=== PATIENT | male | born 1995 | race Caucasian/White ===

== ENCOUNTER 2020-06-09 17:56 | Emergency (ER) | payer MEDICAID, SELFPAY ==
--- NOTE | 2020-06-09 18:08 | ED.GENADUL_ITS ---
Discharge Plan Disposition Patient Disposition: HOME Condition: Stable Discharge Details Chief Complaint: RashLesion Clinical Impression: Abscess or cellulitis of groin Primary Care Provider: Yocasta,Local ED Provider: Tashia Jackson Home Meds and New Rx's Prescriptions: New sulfamethoxazole-trimethoprim [Bactrim DS] 800-160 mg tablet 1 tab PO BID 7 Days Qty: 14 RF: 0 Discharge Instructions Instructions: Cellulitis (ED) Additional Instructions: Apply warm compresses to the affected area several times daily. Take the antibiotics until finished. Be sure to wear and change cotton underwear or shorts a few times daily to help with moisture. You will receive a call from care management regarding a follow-up appointment with the primary care doctor within the next 1 to 2 weeks. Return to the emergency department with any worsening or new concerning symptoms. Discharge Data Discharge Date/Time-TO BE ENTERED AT DEPARTURE: 06/09/20 18:55 Discharge Physician: Tashia Jackson Medical Decision Making 25-year-old male who presents with left thigh abscess with surrounding cellulitis the past few days, now improving after abscess in center started draining. His BP is mildly hypertensive which he states he has a history of when in the hospital or the doctor's office. He appears nontoxic. He has a 7x7cm area of erythema with an open area in center draining serous fluid. There is no fluctuance or induration. Do not see indication for labs or imaging. Do not see any indication for additional incision and drainage as it is already draining and there is no area of fluctuance or induration. We will treat with Bactrim. 1 dose given here and prescription for home. Patient instructed in the importance of warm compresses and keeping area clean and dry. He was placed on care management list to arrange for a follow-up appoint with the primary care doctor. Insert return precautions Medical Records Medical records reviewed: Yes I reviewed the patient's medical records. HPI General Mode of arrival: ambulatory . Date/Time Provider Initiated Documentation: 06/09/20 18:08 . Limitations to Documentation: no limitations . Information obtained by: patient . HPI Narrative: Patient is a 24-year-old male with a history of multiple abscesses in the past due to ingrown hairs who presents with left thigh abscess that is now draining since yesterday. He states the area became red, swollen and painful and then an area in the center opened and is draining clear to red fluid. He states the pain is much improved since it started draining. He denies any known fevers. Related Data Home Medications Medication Instructions Recorded Confirmed sulfamethoxazole-trimethoprim 1 tab PO BID 7 Days #14 tab 06/09/20 [Bactrim DS] Previous Rx's Medication Instructions Recorded sulfamethoxazole-trimethoprim 1 tab PO BID 7 Days #14 tab 06/09/20 [Bactrim DS] Review of Systems All systems reviewed & are unremarkable except as noted in HPI and below Constitutional Constitutional: Reports as per HPI, Denies chills and Denies fever(s) Eyes Eyes: Denies blurry vision ENT Ears, Nose, Mouth, and Throat: Denies dizziness, Denies sore throat and Denies throat swelling Cardiovascular Cardiovascular: Denies chest pain and Denies dyspnea Respiratory Respiratory: Denies cough and Denies dyspnea Gastrointestinal Gastrointestinal: Denies abdominal pain, Denies diarrhea and Denies vomiting Genitourinary Genitourinary: Denies hematuria and Denies dysuria Musculoskeletal Musculoskeletal: Denies back pain and Denies numbness Integumentary/Breasts Skin/Breast: Reports lesions and Denies rash Neurologic Neurologic: Denies dizziness, Denies localized weakness and Denies numbness Allergic/Immunologic Allergic/Immunologic: Denies throat swelling [facility] Medical History (Updated 06/09/20 @ 18:39 by Tashia Jackson DO) Abscess (Acute) history of multiple Surgical History (Updated 06/09/20 @ 18:35 by Tashia Jackson DO) No significant past surgical history (Acute) Social History Smoking/Tobacco Use Status: Current every day Alcohol Intake: current Substance use type: marijuana Do you feel safe at home: Yes Do you feel safe in your relationship?: Yes Exam Const General: cooperative, healthy appearing and no acute distress HENMT Head: normal to inspection Mouth: oral mucosae normal Eyes General: appearance normal, both eyes and all related structures Neck Neck: normal visual inspection Resp Effort & Inspection: normal respiratory effort and able to speak in complete sentences Cardio Rate: regular rate Skin General skin exam: no rashes or lesions noted Neuro General: patient alert, patient awake and patient oriented x3 Motor: muscle tone normal throughout Extrem Upper/lower leg/hip images: 1. 7 x 7 cm area of erythema with a 1 x 1 cm open area in center draining serous liquid. There is no induration, fluctuance noted. Minimal tenderness to palpation. Psych Appearance: grossly normal Affect: normal affect
[2020-06-09 18:19] VITALS: BP 172/89; PULSE 98; RESP 14; TEMP 36.8; O2SAT 99
[2020-06-09] MEDS: Sulfameth/Trimeth DS, 2 TABS/BTL 1 TAB PO (18:51)
[2020-06-09] MEDS: Sulfameth/Trimeth DS TAB 1 TAB PO (18:51)
--- NOTE | 2020-06-10 09:43 | PDOC.ERCMPRO ---
- If Service Date Differs Date of service: 06/10/20 Time of Service: 09:43 Care Management Progress Note At the request of ED provider, CM coordinates referral to Adrienne Greene, on-call provider, of [facility], to assist Pardeep in obtaining a follow-up appointment and in establishing care with a local PCP. Pardeep was seen in the ED for a left thigh abscess and he has Medicaid for insurance.
== END 2020-06-09 18:55 | disposition home or self-care (01) ==
PROVIDERS: Emergency Provider Physician Assistant
DX: L02.214 Cutaneous abscess of groin (principal); L03.116 Cellulitis of left lower limb
CPT/HCPCS: 99283

== ENCOUNTER 2020-07-04 21:22 | Emergency (ER) | payer MEDICAID, SELFPAY ==
[2020-07-04 21:28] VITALS: BP 169/92; PULSE 92; RESP 16; TEMP 37.2; O2SAT 98
--- NOTE | 2020-07-04 21:52 | W.ED.GENAD ---
Discharge Plan Disposition Patient Disposition: HOME Condition: Good Discharge Details Clinical Impression: Abdominal pain Primary Care Provider: None,None ED Provider: Emelina Olmedo Home Meds and New Rx's Prescriptions: No Action No Known Home Meds RF: 0 Discharge Instructions Instructions: Abdominal Pain (ED) Additional Instructions: Drink 6 to 8 glasses of water daily to stay well-hydrated Can use [id number] bowel medications if needed Return for new or worsening symptoms follow-up with your primary care provider Medical Decision Making Patient with complaints of abdominal pain and distention. IV established given 1 L of normal saline. Routine abdominal labs sent urine unremarkable. CT of the abdomen and pelvis shows scattered areas of mild mural thickening of the colon and possible small bowel obstruction with mild stool burden and well formed stool in the colon. No obstruction no hernia no other acute findings. Hemodynamically he is stable abdominal exam remains benign. Labs reviewed and are unremarkable. Patient has had no difficulty tolerating p.o. he is stable and ready for discharge to home Medical Records Medical records reviewed: Yes I reviewed the patient's medical records. Lab Data Lab results reviewed: Yes I reviewed the patient's lab results. Lab results narrative: Laboratory Tests Range/Units 07/04/20 07/04/20 07/04/20 21:45 21:45 22:20 WBC (4.4-10.8) 10^3/uL 12.65 H RBC (4.36-5.78) 10^6/uL 5.37 Hgb (13.5-17.5) g/dL 17.0 Hct (40.0-50.0) % 49.5 MCV (80-95) fL 92.2 MCH (27.0-33.0) pg 31.7 MCHC (32.0-36.0) % 34.3 RDW (11.8-14.1) % 12.8 Plt Count (130-400) 10^3/uL 250 MPV (8.0-11.0) fL 10.1 Immature Gran % 0.5 Neutrophils % 56.2 Lymphocytes % 34.2 Monocytes % 6.2 Eosinophils % 2.5 Basophils % 0.4 Nucleated RBC % % 0 Absolute Neutrophils (1.2-6.7) 10^3/uL 7.11 H Absolute Lymphocytes (1.2-3.4) 10^3/uL 4.33 H Absolute Monocytes (0.1-0.8) 10^3/uL 0.78 Absolute Eosinophils (0.0-0.7) 10^3/uL 0.32 Absolute Basophils (0.0-0.2) 10^3/uL 0.05 Sodium (136-145) mmol/L 137 Potassium (3.5-5.1) mmol/L 4.0 Chloride (98-107) mmol/L 101 Carbon Dioxide (21.0-32.0) mmol/L 28.1 Anion Gap (3-11) mmol/L 7.9 BUN (7-18) mg/dL 13 Creatinine (0.70-1.30) mg/dL 1.24 Estimated GFR/1.73 m2 (mL/min/1.73m2) >= 60.00 Glucose (74-106) mg/dL 93 Calcium (8.5-10.1) mg/dL 8.9 Magnesium (1.8-2.4) mg/dL 2.3 Total Bilirubin (0.2-1.0) mg/dL 0.3 AST (15-37) U/L 28 ALT (16-63) U/L 39 Alkaline Phosphatase (46-116) U/L 62 Total Protein (6.4-8.2) g/dL 7.8 Albumin (3.4-5.0) g/dL 4.1 Lipase (73-393) U/L 55 Urine Color (Yellow) Yellow Urine Clarity (Clear) Clear Urine pH (5-8) 6.5 Ur Specific [place] (1.005-1.025) <= 1.005 Urine Protein (Negative) mg/dL Negative Urine Ketones (Negative) mg/dL Negative Urine Blood (Negative) Negative Urine Nitrite (Negative) Negative Urine Bilirubin (Negative) Negative Urine Urobilinogen (Up TO 0.2) EU/dL 0.2 Ur Leukocyte Esterase (Negative) Negative Urine Glucose (Negative) mg/dL Negative HPI General Mode of arrival: ambulatory. Date/Time Provider Initiated Documentation: 07/04/20 21:45. Limitations to Documentation: no limitations. Information obtained by: patient. HPI Narrative: Patient presents with a several day history of right-sided abdominal distention. He denies nausea vomiting states he has been eating and drinking well and bowels have been functioning. Denies any similar history. No fevers no recent sick contacts with similar symptoms Related Data Home Medications Medication Instructions Recorded Confirmed Unknown [No Known Home Meds] 07/04/20 07/04/20 Allergies Allergy/AdvReac Type Severity Reaction Status Date / Time No Known Drug Allergies Allergy Unverified 07/04/20 21:33 General Stated Complaint: Abd Prob TANYA: 3 Review of Systems All systems reviewed & are unremarkable except as noted in HPI and below Constitutional Constitutional: Denies fever(s) Gastrointestinal Gastrointestinal: Denies abdominal pain, Reports bloating, Denies diarrhea, Denies nausea and Denies vomiting PFSH Medical History (Updated 07/04/20 @ 23:06 by Emelina Olmedo NP) Abscess history of multiple Surgical History (Updated 06/09/20 @ 18:35 by Tashia Jackson DO) No significant past surgical history Social History Smoking/Tobacco Use Status: Current every day Tobacco Type: cigarettes Alcohol Intake: current Alcohol Intake frequency: 3 or more drinks per day Alcohol type: beer Drug use: Daily Substance use type: marijuana Do you feel safe at home: Yes Do you feel safe in your relationship?: Yes Exam Const General: cooperative, comfortable and well developed Nutritional Appearance: obese Orientation: alert, awake and oriented x3 Chest Chest: normal inspection of the chest Resp Effort & Inspection: normal respiratory effort Auscultation: clear to auscultation bilaterally Cardio Rate: regular rate Rhythm: regular rhythm GI Inspection: distended Palpation: soft, not firm, no guarding, no hepatomegaly, no hernias, mass, not rigid and nontender Auscultation: normal bowel sounds Skin General skin exam: no rashes or lesions noted Neuro General: patient alert, patient awake and patient oriented x3 Course Vital Signs Vital signs: Vital Signs Temperature 37.2 C 07/04/20 21:28 Pulse 92 H 07/04/20 21:28 Respiratory Rate 16 07/04/20 21:28 Blood Pressure 169/92 H 07/04/20 21:28 Pulse Oximetry 98 07/04/20 21:28 Temperature 37.2 C 07/04/20 21:28 Pulse 92 H 07/04/20 21:28 Respiratory Rate 16 07/04/20 21:28 Respiratory Effort Non-Labored 07/04/20 21:31 Blood Pressure 169/92 H 07/04/20 21:28 Pulse Oximetry 98 07/04/20 21:28 Oxygen Delivery Method Room Air 07/04/20 21:28 Oxygen Flow Rate 0 07/04/20 21:28 Pain Level 0 07/04/20 21:28
[2020-07-04 22:00] LABS: Abs Immature Grans 0.06 10^3/uL (0.0-0.06); Absolute Basophil Count 0.05 10^3/uL (0.0-0.2); Absolute Eosinophil Count 0.32 10^3/uL (0.0-0.7); Absolute Monocyte Count 0.78 10^3/uL (0.1-0.8); Basophils % 0.4; Eosinophils % 2.5; HCT 49.5 % (40.0-50.0); Immature Grans % 0.5; Lymphocytes % 34.2; MCH 31.7 pg (27.0-33.0); MCHC 34.3 % (32.0-36.0); MCV 92.2 fL (80-95); MPV 10.1 fL (8.0-11.0); Monocytes % 6.2; Neutrophils % 56.2; Nucleated RBC 0 %; Platelet Count 250 10^3/uL (130-400); RBC 5.37 10^6/uL (4.36-5.78); RDW 12.8 % (11.8-14.1); RDW-SD 43.2 fL; WBC 12.65 10^3/uL (4.4-10.8)
[2020-07-04] MEDS: Omnipaque 350 MG/ML 100 ML BTL IJ (22:02)
[2020-07-04 22:11] LABS: ALT 39 U/L (16-63); AST 28 U/L (15-37); Albumin 4.1 g/dL (3.4-5.0); Alkaline Phosphatase 62 U/L (46-116); Anion Gap 7.9 mmol/L (3-11); BUN 13 mg/dL (7-18); Bilirubin, Total 0.3 mg/dL (0.2-1.0); CO2 28.1 mmol/L (21.0-32.0); CREATININE 1.24 mg/dL (0.70-1.30); Calcium 8.9 mg/dL (8.5-10.1); Chloride 101 mmol/L (98-107); Glucose 93 mg/dL (74-106); Lipase 55 U/L (73-393); Magnesium 2.3 mg/dL (1.8-2.4); Sodium 137 mmol/L (136-145); Total Protein 7.8 g/dL (6.4-8.2)
[2020-07-04] MEDS: Normal Saline - Diluent 50 ML VIAL IV (22:13)
--- NOTE | 2020-07-04 22:13 | DI.CT_ITS ---
EXAM: CT ABDOMEN PELVIS W CLINICAL HISTORY: right lower abd pain TECHNIQUE: COMPARISON: No exams were available for comparison FINDINGS: CT examination of the abdomen and pelvis was performed with bolus infusion of 100 cc of Omnipaque 350 . Images obtained through the lung bases are unremarkable. The liver and spleen appear normal as does the pancreas. Gallbladder and bile ducts are unremarkable. Adrenals appear normal bilaterally. Kidneys appear normal with no evidence of renal mass, hydronephro sis, or nephrolithiasis There is no evidence of abdominal or pelvic adenopathy. Abdominal aorta is of normal diameter and no major vascular abnormality is seen. Appendix is normal. There is no evidence of diverticulitis or bowel obstruction. There are few loops of small bowel in t he left upper quadrant with mildly thickened wall, question enteritis. No gross evidence of colitis. . No significant abdominal wall hernia seen. Impression: Possible enteritis. No evidence of appendicitis. RADIATION DOSE DELIVERED: Total DLP Total DLP DATA REPOSITORY: All CT scans at this facility are submitted to the National Radiology Data Registry (NRDR) Dose Index Registry (DIR) with the [employer] (ACR). RADIATION OPTIMIZATION: All CT scans at this facility use at least one of these dose optimization te chniques: automated exposure control; mA and/or kV adjustment per patient size (includes targeted exa ms where dose is matched to clinical indication); or iterative reconstruction.
[2020-07-04] MEDS: Normal Saline Flush 10 ML SYR IVP (22:15)
[2020-07-04] MEDS: Normal Saline 1,000 ML 1000 ML IV (22:18)
[2020-07-04 22:20] LABS: Absolute Lymphocyte Count 4.33 10^3/uL (1.2-3.4); Absolute Neutrophil Count 7.11 10^3/uL (1.2-6.7)
[2020-07-04 22:41] LABS: Bilirubin Negative (Negative); Blood Negative (Negative); Clarity Clear (Clear); Glucose Negative (Negative); Ketones Negative (Negative); Leukocyte Esterase Negative (Negative); Nitrite Negative (Negative); Specific Gravity <= 1.005 (1.005-1.025); Urobilinogen 0.2 EU/dL (Up TO 0.2); pH 6.5 (5-8)
--- NOTE | 2020-07-04 22:52 | DI.VRAD_ITS ---
PROCEDURE INFORMATION: Exam: CT Abdomen And Pelvis With Contrast Exam date and time: 07/04/2020 10:08 PM Age: 25 years old Clinical indication: Abdominal pain; Generalized; Patient HX: RT lower abd pain TECHNIQUE: Imaging protocol: Computed tomography of the abdomen and pelvis with intravenous contrast. Radiation optimization: All CT scans at this facility use at least one of these dose optimization techniques: automated exposure control; mA and/or kV adjustment per patient size (includes targeted exams where dose is matched to clinical indication); or iterative reconstruction. Contrast material: OMNI 350; Contrast volume: 100 ml; Contrast route: INTRAVENOUS (IV); COMPARISON: No relevant prior studies available. FINDINGS: Lungs: Lung bases are clear. Liver: Unremarkable. No mass. Gallbladder and bile ducts: Unremarkable. No calcified stones. No ductal dilation. Pancreas: Unremarkable. No ductal dilation. Spleen: Spleen is at the upper limits of normal for size measuring approximately 13.6 cm AP by 7.9 cm transverse by 11.7 cm craniocaudad. No splenic mass. Adrenals: Unremarkable. No mass. Kidneys and ureters: Unremarkable. No hydronephrosis. Ureters are normal in course and caliber. Stomach and bowel: There is gaseous distention of the rectum without mural thickening. There is mild nonfocal mural thickening of the descending and sigmoid colon with slight associated vascular engorgement. Also noted is mild mural thickening of the cecum. Also noted is questionable mural thickening of the proximal small bowel within the left upper quadrant, however underdistended limiting evaluation. There is mild diverticulosis of the left hemicolon. There is mild colonic stool burden with well-formed stool. No bowel obstruction. Appendix: Within normal limits. Intraperitoneal space: No free air. No significant fluid collection. Vasculature: Within normal limits. No abdominal aortic aneurysm or dissection. Lymph nodes: No pathologically enlarged lymph nodes. Bladder: Unremarkable as visualized. Reproductive: Unremarkable as visualized. Bones/joints: Unremarkable. No acute fracture. Soft tissues: No focal abnormality. IMPRESSION: Scattered areas of mild mural thickening of the colon and possibly small bowel as discussed above suspicious for acute colitis/enteritis to include inflammatory bowel disease. Clinical correlation is recommended. Dictated and Authenticated by: Miki Alaniz MD. Ordering:CARLITA Tarango MD
[2020-07-04 23:06] VITALS: BP 137/90; PULSE 77; RESP 16; O2SAT 97
== END 2020-07-04 23:10 | disposition home or self-care (01) ==
PROVIDERS: Emergency Provider Nurse Practitioner Acute Care
DX: R14.0 Abdominal distension (gaseous) (principal); R10.11 Right upper quadrant pain
CPT/HCPCS: 36415; 80053; 83690; 96360; 99285; 74177; 81003; 83735; 85025; 99284; J3490

== ENCOUNTER 2021-12-24 07:33 | Emergency (ER) | payer MEDICAID, SELFPAY ==
[2021-12-24 07:45] VITALS: BP 150/78; PULSE 83; RESP 16; TEMP 36.9; O2SAT 99
[2021-12-24 08:08] VITALS: BP 154/81; PULSE 94; RESP 18; TEMP 36.6; O2SAT 98
--- NOTE | 2021-12-24 08:13 | ED.GENADUL_ITS ---
Discharge Plan Disposition Patient Disposition: HOME Condition: Stable Discharge Details Clinical Impression: Abscess, dental Primary Care Provider: Chas Lunsford ED Provider: Adam Masters Home Meds and New Rx's Prescriptions: New amoxicillin-pot clavulanate 875-125 mg tablet 1 tab PO BID Qty: 14 0RF Continued albuterol sulfate [ProAir HFA] 90 mcg/actuation HFA aerosol inhaler 2 puff inhalation Q6H PRN (Reason: shortness of breath or wheezing) Qty: 18 6RF Advair HFA 230-21 mcg/actuation HFA aerosol inhaler 2 puff inhalation BID Qty: 12 6RF Discharge Instructions Instructions: Dental Abscess (ED) Additional Instructions: Please continue to use [id number] ibuprofen and acetaminophen as needed for discomfort. If you have any significant worsening of the swelling, swelling to your tongue, difficulty breathing swallowing, or high fevers please return immediately to the emergency department for reassessment. It is very important that you follow-up with a dental provider preferably in the next week for definitive care of your dental decay and infection. Discharge Data Discharge Date/Time-TO BE ENTERED AT DEPARTURE: 12/24/21 08:24 Medical Decision Making Exam consistent with early dental abscess to tooth #31 with tooth loss/decay. 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 Pt non toxic and stable. Patient placed upon antibiotics and thoroughly discussed return and follow-up precautions along with definitive dental care. After discussion of diagnosis and plan of care patient has no further needs, questions, or concerns and states clear understanding to return to the emergency department for any worsening symptoms. HPI General Mode of arrival: ambulatory . Date/Time Provider Initiated Documentation: 12/24/21 08:07 . Limitations to Documentation: no limitations . Information obtained by: patient . History of Present Illness 26 year old M presents to the emergency department with the chief complaint of Dental pain, described as mild and moderate, with intensity rated at 2. Quality is described as aching, and is localized to the mouth. and it has been constant. improves with No relieving factors improve symptom(s), Patient notes no other symptoms.. Patient did receive the following treatments prior to arrival, NSAID Related Data Home Medications Medication Instructions Recorded Confirmed albuterol sulfate 90 mcg/actuation 2 puff INHALATION Q6H PRN #18 g 11/04/20 12/24/21 aerosol inhaler (ProAir HFA) fluticasone propionate 230 2 puff INHALATION BID #12 g 08/09/21 12/24/21 mcg-salmeterol 21 mcg/actuation HFA inhaler (Advair HFA) amoxicillin 875 mg-potassium 1 tab PO BID #14 tab 12/24/21 clavulanate 125 mg tablet Previous Rx's Medication Instructions Recorded albuterol sulfate 90 mcg/actuation 2 puff INHALATION Q6H PRN #18 g 11/04/20 aerosol inhaler (ProAir HFA) fluticasone propionate 230 2 puff INHALATION BID #12 g 08/09/21 mcg-salmeterol 21 mcg/actuation HFA inhaler (Advair HFA) amoxicillin 875 mg-potassium 1 tab PO BID #14 tab 12/24/21 clavulanate 125 mg tablet Allergies Allergy/AdvReac Type Severity Reaction Status Date / Time No Known Drug Allergies Allergy Verified 12/24/21 07:49 General Stated Complaint: DentalOral TANYA: 4 Review of Systems Constitutional Constitutional: Denies chills and Denies fever(s) ENT Ears, Nose, Mouth, and Throat: Reports as per HPI, Denies change in voice, Reports dental pain, Denies dysphagia, Denies throat swelling and Denies tongue swelling Cardiovascular Cardiovascular: Denies chest pain and Denies dyspnea Respiratory Respiratory: Denies dyspnea, Denies stridor and Denies wheezing Gastrointestinal Gastrointestinal: Denies abdominal pain, Denies dysphagia, Denies nausea and Denies vomiting Integumentary/Breasts Skin/Breast: Denies rash Allergic/Immunologic Allergic/Immunologic: Denies throat swelling, Denies tongue swelling and Denies wheezing PFSH All Active Problems Abscess, dental (Acute) Acne vulgaris (Acute) Mild persistent asthma (Acute) Tobacco use disorder (Chronic) Alcohol abuse (Chronic) Panic anxiety syndrome (Acute) Anxiety (Chronic) Medical History Abscess history of multiple Surgical History No significant past surgical history Family History Maternal Uncle Lung cancer Paternal Uncle Lung cancer Maternal Grandfather Colon cancer Maternal Aunt Breast cancer Maternal Grandmother Cancer Maternal Grandmother Diabetes Maternal Uncle Diabetes Father Lung cancer Social History Smoking/Tobacco Use Status: Current every day Tobacco Type: cigarettes Smoking packs per day: 1 Smoking cigarettes per day: 20.0 Years smoked: 12 Smoking pack- years: 12.00 Smoking risk assessment performed?: Yes Alcohol Intake: current Alcohol Intake frequency: a few times a week Drug use: Daily Substance use type: marijuana Adopted: No Caregiver/Support person: No Foster care: No Housing: house Communication Needs: Corrective Lenses Do you need help understanding health information?: Rarely current occupation: unemployed Sexually active: Yes Do you think of yourself as: straight/heterosexual Current gender identity: male Do you feel safe at home: Yes Do you feel safe in your relationship?: Yes Exam Const General: cooperative Orientation: alert, awake and oriented x3 Limitations: mental status not altered [facility] Head: atraumatic Ears: hearing grossly normal bilaterally, normal mastoids bilaterally and no periauricular adenopathy General nose exam: external nose normal Face and sinus: tenderness on the right mandible and other (Swelling to right lower jaw) Mouth: oral mucosae normal, lip normal, tongue normal, oropharynx normal, no drooling, no muffled voice, no trismus and other Teeth and gingiva: caries, poor dentition and other (Partially fractured tooth # with erythema surrounding the base of the tooth) Throat: posterior oropharynx normal, tonsils normal and uvula midline Eyes General: appearance normal, both eyes and all related structures Pupils: PERRL Neck Neck: normal visual inspection, full ROM, no lymphadenopathy, no meningeal signs, trachea midline, supple, no anterior neck swelling and no midline deformity Resp Effort & Inspection: normal respiratory effort and able to speak in complete sentences Course Vital Signs Vital signs: Vital Signs Temperature 36.9 C 12/24/21 07:45 Pulse 83 12/24/21 07:45 Respiratory Rate 16 12/24/21 07:45 Blood Pressure 150/78 H 12/24/21 07:45 Pulse Oximetry 99 03/05/22 07:45 Temperature 36.6 C 12/24/21 08:08 Temperature Source Oral 12/24/21 08:08 Pulse 94 H 12/24/21 08:08 Respiratory Rate 18 12/24/21 08:08 Respiratory Effort 12/24/21 07:45 Blood Pressure 154/81 H 12/24/21 08:08 Blood Pressure Position Sitting 12/24/21 07:45 Pulse Oximetry 98 12/24/21 08:08 Oxygen Delivery Method Room Air 12/24/21 08:08 Oxygen Flow Rate 0 12/24/21 08:08 Pain Level 0 12/24/21 08:08 PAWSS Have you Been Recently Intoxicated or Drunk Within the Last 30 days?: Yes Have you Ever Experienced Previous Episodes of Alcohol Withdrawal?: No Have you ever Experienced Withdrawal Seizures?: No Have you ever Experienced Delirium Tremens(DT)s?: No Have you ever undergone Alcohol Rehabilitation Treatment (i.e, inpt ot outpatient treatment programs)?: No Have you ever Experienced Blackouts?: No Have you ever Combined Alcohol with other Downers within the last 90 days?: Yes Have you ever Combined Alcohol with any other Substance of Abuse during the last 90 days?: No Positive Blood Alcohol level on Presentation? [PCS.BAL]: No Evidence of Increased Autonomic Activity (i.e. HR>120, tremor, sweating, agitation, nausea)?: No Result: 1
[2021-12-24 08:20] VITALS: BP 154/81; PULSE 94; RESP 22; TEMP 36.6; O2SAT 98
== END 2021-12-24 08:24 | disposition home or self-care (01) ==
PROVIDERS: Emergency Provider Nurse Practitioner Family; PCP Family Medicine
DX: K04.7 Periapical abscess without sinus (principal)
CPT/HCPCS: 99283

== ENCOUNTER 2022-04-17 10:13 | Emergency (ER) | payer MEDICAID, SELFPAY ==
[2022-04-17 10:37] VITALS: BP 150/78; PULSE 77; RESP 17; TEMP 37; O2SAT 100
== END 2022-04-17 11:52 | disposition home or self-care (01) ==
PROVIDERS: PCP Family Medicine
DX: Z53.21 Procedure and treatment not carried out due to patient leaving prior to being seen by health care provider (principal)

== ENCOUNTER 2022-04-17 18:54 | Emergency (ER) | payer MEDICAID, SELFPAY ==
[2022-04-17 19:32] VITALS: BP 159/93; PULSE 88; RESP 16; TEMP 36.6; O2SAT 99
--- NOTE | 2022-04-17 20:03 | ED.GENADUL_ITS ---
Discharge Plan Disposition Patient Disposition: HOME Condition: Good Discharge Details Clinical Impression: Tinea Primary Care Provider: Chas Lunsford ED Provider: Rossy Scott Home Meds and New Rx's Prescriptions: Continued albuterol sulfate [ProAir HFA] 90 mcg/actuation HFA aerosol inhaler 2 puff inhalation Q6H PRN (Reason: shortness of breath or wheezing) Qty: 18 6RF Advair HFA 230-21 mcg/actuation HFA aerosol inhaler 2 puff inhalation BID Qty: 12 6RF Discharge Instructions Instructions: Betamethasone/Clotrimazole (On the skin), Tinea Corporis (ED) Additional Instructions: Your exam today is most consistent with a localized fungal infection. Please apply the cream given twice per day and try to allow air to this area is much as possible. As we discussed, you may find a antimicrobial show of benefit to help prevent recurrence of your body acne elsewhere. Please encourage water intake- this too will help with your skin. Please follow-up with primary care next 1 to 2 weeks for reevaluation. If develop fever/chills, spreading rash, pain or other new/worsening symptoms please seek care urgently once again. Referrals: Chas Lunsford DO [Primary Care Provider] - Discharge Data Discharge Date/Time-TO BE ENTERED AT DEPARTURE: 04/17/22 20:49 Medical Decision Making Patient is a pleasant 26-year-old male presents with chief complaint of umbilical rash that began 2 days ago. He states that he has had a recurrent umbilical drainage for the past several years. States that this is intermittent and occurs every few months. He denies any fevers or chills. No trauma. States that he does get small abscess in Acne frequently, typically is able to care for these at home and express drainage. He denies feevers;chills. No GI upset. No radiation. On exam, patient appears nontoxic. He does have several areas of scars to upper thighs and back consistent with routine skin irritations, possible cystic acne. He has erytehma within the umbilicus, appears moist. Consistent with fungal infection. He has hot job, states he sweats frequently. He also has a small flap of tissue within the umbilicus. This was probed/lifted with q-tips, well afixed to the skin with no deeper lesions or defect within the umbilicus. This is soft, non-indurated, no fluctuance. Discussed with patient. Most likely associated with fungal infection. Will treat topically. This has been a recurrent issue for him. i encouraged that he f/u with his PCP to discuss further. I discussed treatment in general of his recurrent acne. Encouraged aminta the try to keep the umbilicus dry. Return precautiosn discussed. All of his questions and cocnerns were addressed, he is in agreement with this plan. HPI General Date/Time Provider Initiated Documentation: 04/17/22 19:42 . Limitations to Documentation: no limitations . Information obtained by: patient and RN notes reviewed . History of Present Illness 26 year old M presents to the emergency department with the chief complaint of rash in umbilicus , described as mild and similar to prior episodes (has had intermittent discharge for years), Quality is described as burning, and is localized to the abdomen (umbilicus). Patient reports no radiation. Patient started experiencing this day(s) and it has been c onstant. No relieving factors improve symptom(s), No exacerbating factors reported . Patient notes no other symptoms.. Patient did receive the following treatments prior to arrival, none Related Data Home Medications Medication Instructions Recorded Confirmed albuterol sulfate 90 mcg/actuation 2 puff inhalation Q6H PRN 11/04/20 04/17/22 aerosol inhaler (ProAir HFA) shortness of breath or wheezing #18 grams fluticasone propionate 230 2 puff inhalation BID #12 grams 08/09/21 04/17/22 mcg-salmeterol 21 mcg/actuation HFA inhaler (Advair HFA) Previous Rx's Medication Instructions Recorded albuterol sulfate 90 mcg/actuation 2 puff inhalation Q6H PRN 11/04/20 aerosol inhaler (ProAir HFA) shortness of breath or wheezing #18 grams fluticasone propionate 230 2 puff inhalation BID #12 grams 08/09/21 mcg-salmeterol 21 mcg/actuation HFA inhaler (Advair HFA) Allergies Allergy/AdvReac Type Severity Reaction Status Date / Time No Known Drug Allergies Allergy Verified 04/17/22 19:37 General Stated Complaint: RashLesion TANYA: 4 Review of Systems Constitutional Constitutional: Reports as per HPI, Denies chills and Denies fever(s) Gastrointestinal Gastrointestinal: Reports as per HPI Integumentary/Breasts Skin/Breast: Reports as per HPI Neurologic Neurologic: Reports as per HPI, Denies sensory deficit and Denies paresthesias PFSH All Active Problems (Updated 04/17/22 @ 20:22 by YOON Muñiz) Tinea (Acute) Acne vulgaris (Acute) Mild persistent asthma (Acute) Tobacco use disorder (Chronic) Alcohol abuse (Chronic) Panic anxiety syndrome (Acute) Anxiety (Chronic) Medical History Abscess history of multiple Surgical History No significant past surgical history Family History Maternal Uncle Lung cancer Paternal Uncle Lung cancer Maternal Grandfather Colon cancer Maternal Aunt Breast cancer Maternal Grandmother Cancer Maternal Grandmother Diabetes Maternal Uncle Diabetes Father Lung cancer Social History Smoking/Tobacco Use Status: Current every day Tobacco Type: cigarettes Smoking packs per day: 1 Smoking cigarettes per day: 20.0 Years smoked: 12 Smoking pack- years: 12.00 Smoking risk assessment performed?: Yes Alcohol Intake: current Alcohol Intake frequency: a few times a week Drug use: Daily Substance use type: marijuana Adopted: No Caregiver/Support person: No Foster care: No Housing: house Communication Needs: Corrective Lenses Do you need help understanding health information?: Rarely current occupation: unemployed Sexually active: Yes Do you think of yourself as: straight/heterosexual Current gender identity: male Do you feel safe at home: Yes Do you feel safe in your relationship?: Yes Exam Const General: cooperative, healthy appearing, comfortable, no acute distress and well developed Nutritional Appearance: average body habitus and well nourished Orientation: alert and awake Resp Effort & Inspection: normal respiratory effort, able to speak in complete sentences and no respiratory distress Cardio Rate: regular rate Rhythm: regular rhythm GI Inspection: normal to inspection (except for umbillical skin) Palpation: soft, no guarding and nontender Percussion: normal to percussion Skin General skin exam: erythema (well demarcated erythema and moisture within tteh umbilicus ) and other (flap of skin centrally in umbilicus well attached, no fluctuance, soft) Neuro General: patient alert and patient awake Cognition: normal cognition Speech: speech normal Gait: normal gait Sensory Exam: no sensory deficits noted Psych Appearance: grossly normal and well kempt Mental Status: mental status grossly normal Speech and Movement: speech and movement normal Course Vital Signs Vital signs: Vital Signs Temperature 36.6 C 04/17/22 19:32 Pulse 88 04/17/22 19:32 Respiratory Rate 16 04/17/22 19:32 Blood Pressure 159/93 H 04/17/22 19:32 Pulse Oximetry 99 04/17/22 19:32 Temperature 36.6 C 04/17/22 19:32 Temperature Source Temporal Artery Scan 04/17/22 19:32 Pulse 88 04/17/22 19:32 Respiratory Rate 16 04/17/22 19:32 Respiratory Effort 04/17/22 19:39 Blood Pressure 159/93 H 04/17/22 19:32 Blood Pressure Position Sitting 04/17/22 19:32 Pulse Oximetry 99 04/17/22 19:32 Oxygen Delivery Method Room Air 04/17/22 19:32 Oxygen Flow Rate 0 04/17/22 19:32 Pain Level 0 04/17/22 19:32 PAWSS Have you Been Recently Intoxicated or Drunk Within the Last 30 days?: Yes Have you Ever Experienced Previous Episodes of Alcohol Withdrawal?: No Have you ever Experienced Withdrawal Seizures?: No Have you ever Experienced Delirium Tremens(DT)s?: No Have you ever undergone Alcohol Rehabilitation Treatment (i.e, inpt ot outpatient treatment programs)?: No Have you ever Experienced Blackouts?: Yes Have you ever Combined Alcohol with other Downers within the last 90 days?: No Have you ever Combined Alcohol with any other Substance of Abuse during the last 90 days?: Yes Positive Blood Alcohol level on Presentation? [PCS.BAL]: No Evidence of Increased Autonomic Activity (i.e. HR>120, tremor, sweating, agitation, nausea)?: No Result: 4
[2022-04-17] MEDS: Clotrimazole 1% 15 GM TUBE TP (20:45)
== END 2022-04-17 20:49 | disposition home or self-care (01) ==
PROVIDERS: Emergency Provider Physician Assistant; PCP Family Medicine
DX: B35.8 Other dermatophytoses (principal)
CPT/HCPCS: 99283

== ENCOUNTER 2023-07-01 08:44 | Emergency (ER) | payer MEDICAID, SELFPAY ==
--- NOTE | 2023-07-01 08:45 | RT.EKG_ITS ---
APPROVED REPORT Exam: Resting ECG Reason for Exam: dizzy Patient Location: E HR:72 bpm ECG Measurements Heart Rate 72 AXIS MI 155 P 47 QRSd 89 QRS 61 QT 372 T 39 QTc 407 Conclusion Sinus rhythm...normal P axis, V-rate 60- 99
[2023-07-01 08:46] VITALS: BP 169/112; PULSE 86; RESP 20; O2SAT 99
[2023-07-01] MEDS: chlordiazePOXIDE 25 MG CAP 50 MG PO (09:34)
[2023-07-01 10:03] LABS: Abs Immature Grans 0.04 10^3/uL (0.0-0.06); Absolute Basophil Count 0.05 10^3/uL (0.0-0.2); Absolute Eosinophil Count 0.25 10^3/uL (0.0-0.7); Absolute Lymphocyte Count 1.78 10^3/uL (1.2-3.4); Absolute Monocyte Count 0.75 10^3/uL (0.1-0.8); Basophils % 0.4; Eosinophils % 2.1; HCT 51.4 % (40.0-50.0); HGB 17.8 g/dL (13.5-17.5); Immature Grans % 0.3; Lymphocytes % 15.2; MCH 31.4 pg (27.0-33.0); MCHC 34.6 % (32.0-36.0); MCV 91 fL (80-95); MPV 9.5 fL (8.0-11.0); Monocytes % 6.4; Neutrophils % 75.6; Platelet Count 224 10^3/uL (130-400); RBC 5.67 10^6/uL (4.36-5.78); RDW 12.3 % (11.8-14.1); RDW-SD 40.7 fL; WBC 11.72 10^3/uL (4.4-10.8)
[2023-07-01 10:05] LABS: Absolute Neutrophil Count 8.86 10^3/uL (1.2-6.7)
[2023-07-01 10:27] LABS: ALT 23 U/L (16-63); AST 17 U/L (15-37); Albumin 4.3 g/dL (3.4-5.0); Alkaline Phosphatase 65 U/L (46-116); Anion Gap 6.9 mmol/L (3-11); BUN 15 mg/dL (7-18); Bilirubin, Total 0.7 mg/dL (0.2-1.0); CO2 28.1 mmol/L (21.0-32.0); Calcium 9.5 mg/dL (8.5-10.1); Chloride 102 mmol/L (98-107); Estimated GFR 104.48 (mL/min/1.73m2); Glucose 119 mg/dL (74-106); Potassium 4.3 mmol/L (3.5-5.1); Sodium 137 mmol/L (136-145); TSH (W/Ref FT4) 1.26 uIU/mL (0.36-3.74); Total Protein 7.9 g/dL (6.4-8.2)
--- NOTE | 2023-07-01 10:38 | W.ED.GENAD ---
Discharge Plan Disposition Patient Disposition: Home Discharge Details Clinical Impression: Alcohol abuse Primary Care Provider: Chas Lunsford ED Provider: Erma Perez Home Meds and New Rx's Prescriptions: New chlordiazepoxide HCl 25 mg capsule 50 mg PO Q6H PRNQty: 24 0RF Rx Instructions: take 50 mg every 6 hours as needed for withdrawal symptoms for the next 2 days, Continued chlorhexidine gluconate 0.12 % mouthwash 15 ml buccal BID Qty: 1500 0RF Rx Instructions: swish and spit 15ml 2x daily albuterol sulfate [ProAir HFA] 90 mcg/actuation HFA aerosol inhaler 2 puff inhalation Q6H PRN (Reason: shortness of breath or wheezing) Qty: 18 6RF varenicline [Chantix Continuing Month Box] 1 mg tablet 1 mg PO BID Qty: 56 3RF Patient Comments: not taking Advair HFA 230-21 mcg/actuation HFA aerosol inhaler 2 puff inhalation BID Qty: 12 6RF Discharge Instructions Instructions: Abuse of Alcohol (ED) Additional Instructions: Please use caution as Librium can also be addictive but this will help you safely stop drinking alcohol, even supplied with [employer] information, please do use them as a resource You may take the Librium, 25 to 50 mg every 6 hours for the next 2 days, after that taper down to 25 mg every 6 hours as needed with the goal to discontinue Please return should you develop new or worsening complaints Do not combine Librium with alcohol as this can make you very sick It also may be helpful to let your doctor know that you are on this medication to come off of alcohol Stand Alone Forms: Work Release Referrals: Chas Lunsford DO [Primary Care Provider] - Medical Decision Making 28-year-old male presenting with report of discontinuing alcohol, history of alcoholism, drinks 18-36 drinks a day, had palpitations last night and was concerned and came in for evaluation, stopped drinking 48 hours ago Denies any suicidality or auditory visual hallucinations, denies additional illicit drug use Denies any prior history of withdrawal more than having diaphoresis CIWA 4, adamantly declines admission to hospital for detox, would like outpatient Librium, girlfriend does not drink alcohol and is willing to distribute Librium at home, she appears reliable and will give her enough Librium to help this patient withdrawal from alcohol, [facility] was called and resources have been supplied Patient is alert, oriented, pleasant, in no acute distress, and his diagnostic labs were ordered for further evaluation and do not show evidence of significant acute abnormality including EKG, please see my attendings documentation HPI General Date/Time Provider Initiated Documentation: 07/01/23 09:15. HPI Narrative: This 28-year-old male presents with report of alcohol withdrawal symptoms, the palpitations last evening. Last drink was 48 hours ago. Typically drinks between 18-36 beers daily. States has had some intermittent palpitations and feels sweaty. Denies any chest pain or shortness of breath. Denies any history of alcohol withdrawal seizures. Asking for home. Denies any suicidality, hallucinations, does report feeling anxious Related Data Home Medications Medication Instructions Recorded Confirmed albuterol sulfate 90 mcg/actuation 2 puff inhalation Q6H PRN 07/14/22 07/01/23 aerosol inhaler (ProAir HFA) shortness of breath or wheezing #18 grams varenicline 1 mg tablet (Chantix 1 mg PO BID #56 tabs 01/18/23 07/01/23 Continuing Month Box) chlorhexidine gluconate 0.12 % 15 ml buccal BID #1,500 mL 02/07/23 07/01/23 mouthwash fluticasone propionate 230 2 puff inhalation BID #12 grams 04/14/23 07/01/23 mcg-salmeterol 21 mcg/actuation HFA inhaler (Advair HFA) chlordiazepoxide HCl 25 mg capsule 50 mg PO Q6H PRN #24 caps 07/01/23 Previous Rx's Medication Instructions Recorded albuterol sulfate 90 mcg/actuation 2 puff inhalation Q6H PRN 07/14/22 aerosol inhaler (ProAir HFA) shortness of breath or wheezing #18 grams varenicline 1 mg tablet (Chantix 1 mg PO BID #56 tabs 01/18/23 Continuing Month Box) chlorhexidine gluconate 0.12 % 15 ml buccal BID #1,500 mL 02/07/23 mouthwash fluticasone propionate 230 2 puff inhalation BID #12 grams 04/14/23 mcg-salmeterol 21 mcg/actuation HFA inhaler (Advair HFA) chlordiazepoxide HCl 25 mg capsule 50 mg PO Q6H PRN #24 caps 07/01/23 Allergies Allergy/AdvReac Type Severity Reaction Status Date / Time No Known Drug Allergies Allergy Verified 07/01/23 08:57 General Stated Complaint: ETOHWithdr TANYA: 3 PFSH All Active Problems Onychomycosis (Acute) Umbilical abnormality (Acute) Acne vulgaris (Acute) Mild persistent asthma (Acute) Tobacco use disorder (Chronic) Alcohol abuse (Chronic) Panic anxiety syndrome (Acute) Anxiety (Chronic) Medical History Abscess history of multiple Surgical History No significant past surgical history Family History Maternal Uncle Lung cancer Paternal Uncle Lung cancer Maternal Grandfather Colon cancer Maternal Aunt Breast cancer Maternal Grandmother Cancer Maternal Grandmother Diabetes Maternal Uncle Diabetes Father Lung cancer Social History Smoking/Tobacco Use Status: Current every day Tobacco Type: cigarettes Smoking packs per day: 1 Smoking cigarettes per day: 20.0 Years smoked: 12 Smoking pack-years: 12.00 Tobacco: How many years used: 12 Quit status: considering quitting Smoking risk assessment performed?: Yes Alcohol Intake: current Alcohol Intake frequency: a few times a week Drug use: Daily Substance use type: marijuana Adopted: No Caregiver/Support person: No Foster care: No Household members: significant other and children Housing: house Number of Children: 0 number of grandchildren: 0 Communication Needs: None Education Level: high school Do you need help understanding health information?: Rarely current occupation: [employer] Pets and animals: Yes (1) Pets and animals: dog(s) Sexually active: Yes Do you think of yourself as: straight/heterosexual Current gender identity: male What is your relationship status?: living with partner How often do you talk on the phone with friends or family?: three or more times per week How often do you get together with friends or relatives?: twice per week Do you belong to any clubs or organized social groups?: no Panel score (0-1 are the most socially isolated patients): 2 Seatbelt use: always Drive intox or ride w/intox medical delivery driver: No Do you feel safe at home: Yes Do you feel safe in your relationship?: Yes Course Vital Signs Vital signs: Vital Signs Pulse 86 07/01/23 08:46 Respiratory Rate 20 07/01/23 08:46 Blood Pressure 169/112 H 07/01/23 08:46 Pulse Oximetry 99 07/01/23 08:46 Pulse 86 07/01/23 08:46 Respiratory Rate 20 07/01/23 08:46 Respiratory Effort Normal 07/01/23 08:58 Respiratory Pattern Normal 07/01/23 09:00 Blood Pressure 169/112 H 07/01/23 08:46 Blood Pressure Position Sitting 07/01/23 08:46 Pulse Oximetry 99 07/01/23 08:46 Oxygen Delivery Method Room Air 07/01/23 08:46 Oxygen Flow Rate 0 07/01/23 08:46 Pain Level 0 07/01/23 08:46 Lab/Test Results Lab/Test Results: Laboratory Tests Range/Units 07/01/23 07/01/23 09:58 09:58 WBC (4.4-10.8) 10^3/uL 11.72 H RBC (4.36-5.78) 10^6/uL 5.67 Hgb (13.5-17.5) g/dL 17.8 H Hct (40.0-50.0) % 51.4 H MCV (80-95) fL 91 MCH (27.0-33.0) pg 31.4 MCHC (32.0-36.0) % 34.6 RDW (11.8-14.1) % 12.3 Plt Count (130-400) 10^3/uL 224 MPV (8.0-11.0) fL 9.5 Immature Gran % 0.3 Neutrophils % 75.6 Lymphocytes % 15.2 Monocytes % 6.4 Eosinophils % 2.1 Basophils % 0.4 Nucleated RBC % (0.0-0.3) % 0.0 Absolute Neutrophils (1.2-6.7) 10^3/uL 8.86 H Absolute Lymphocytes (1.2-3.4) 10^3/uL 1.78 Absolute Monocytes (0.1-0.8) 10^3/uL 0.75 Absolute Eosinophils (0.0-0.7) 10^3/uL 0.25 Absolute Basophils (0.0-0.2) 10^3/uL 0.05 Sodium (136-145) mmol/L 137 Potassium (3.5-5.1) mmol/L 4.3 Chloride (98-107) mmol/L 102 Carbon Dioxide (21.0-32.0) mmol/L 28.1 Anion Gap (3-11) mmol/L 6.9 BUN (7-18) mg/dL 15 Creatinine (0.70-1.30) mg/dL 1.0 Est GFR (CKD-EPI 2020) (mL/min/1.73m2) 104.48 Glucose (74-106) mg/dL 119 H Calcium (8.5-10.1) mg/dL 9.5 Magnesium (1.8-2.4) mg/dL 2.0 Total Bilirubin (0.2-1.0) mg/dL 0.7 AST (15-37) U/L 17 ALT (16-63) U/L 23 Alkaline Phosphatase (46-116) U/L 65 Total Protein (6.4-8.2) g/dL 7.9 Albumin (3.4-5.0) g/dL 4.3 TSH (0.36-3.74) uIU/mL 1.26 PAWSS Have you Been Recently Intoxicated or Drunk Within the Last 30 days?: Yes Have you Ever Experienced Previous Episodes of Alcohol Withdrawal?: No Have you ever Experienced Withdrawal Seizures?: No Have you ever Experienced Delirium Tremens(DT)s?: No Have you ever undergone Alcohol Rehabilitation Treatment (i.e, inpt ot outpatient treatment programs)?: No Have you ever Experienced Blackouts?: No Have you ever Combined Alcohol with other Downers within the last 90 days?: Yes Have you ever Combined Alcohol with any other Substance of Abuse during the last 90 days?: No Positive Blood Alcohol level on Presentation? [PCS.BAL]: No Evidence of Increased Autonomic Activity (i.e. HR>120, tremor, sweating, agitation, nausea)?: Yes Result: 2
--- NOTE | 2023-07-01 10:46 | NUR.NOTE ---
Nursing Note: f/u after first does of Librium patient reports not feeling as sweaty or uptight provider aware
== END 2023-07-01 11:02 | disposition home or self-care (01) ==
PROVIDERS: Emergency Provider Physician Assistant; PCP Family Medicine
DX: F10.10 Alcohol abuse, uncomplicated (principal); R42 Dizziness and giddiness; R73.09 Other abnormal glucose
CPT/HCPCS: 36415; 80053; 93005; 99284; 83735; 84443; 85025; 93010

== ENCOUNTER 2023-11-28 16:17 | Emergency (ER) | payer MEDICAID, SELFPAY ==
[2023-11-28 16:20] VITALS: BP 162/84; PULSE 80; RESP 14; TEMP 36.6; O2SAT 100
--- NOTE | 2023-11-28 17:58 | ED.GENADUL_ITS ---
HPI General Mode of arrival: ambulatory . Date/Time Provider Initiated Documentation: 11/28/23 16:22 . Limitations to Documentation: no limitations . Information obtained by: patient, RN notes reviewed and old records reviewed . 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 He reports that he does heavy lifting for his job. He states that he was holding a bong the other day and had a hard time gripping it. Distal pulses intact. He does have good flexion extension at his elbow, has good abduction and abduction of the shoulder. No midline C-spine tenderness with palpation however he does have some upper T-spine tenderness with palpation. No crepitus or step-off. 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 He denies having any surgery or any known back or spine problems. Denies any l oss of bowel or bladder control or any other paresthesias or tingling to his other extremities. Related Data Home Medications Medication Instructions Recorded Confirmed fluticasone propionate 230 2 puff inhalation BID #12 grams 04/14/23 08/31/23 mcg-salmeterol 21 mcg/actuation HFA inhaler (Advair HFA) naltrexone 50 mg tablet 50 mg PO DAILY #30 tabs 07/06/23 08/31/23 chlorhexidine gluconate 0.12 % 15 ml buccal BID #1,500 mL 07/20/23 08/31/23 mouthwash escitalopram oxalate 10 mg tablet 10 mg PO DAILY #90 tabs 08/31/23 08/31/23 albuterol sulfate 90 mcg/actuation 2 puff inhalation Q6H PRN 11/22/23 aerosol inhaler (ProAir HFA) shortness of breath or wheezing #18 grams cyclobenzaprine 10 mg tablet 10 mg PO TID PRN muscle spasm #10 11/28/23 tabs Previous Rx's Medication Instructions Recorded fluticasone propionate 230 2 puff inhalation BID #12 grams 04/14/23 mcg-salmeterol 21 mcg/actuation HFA inhaler (Advair HFA) naltrexone 50 mg tablet 50 mg PO DAILY #30 tabs 07/06/23 chlorhexidine gluconate 0.12 % 15 ml buccal BID #1,500 mL 07/20/23 mouthwash escitalopram oxalate 10 mg tablet 10 mg PO DAILY #90 tabs 08/31/23 albuterol sulfate 90 mcg/actuation 2 puff inhalation Q6H PRN 11/22/23 aerosol inhaler (ProAir HFA) shortness of breath or wheezing #18 grams cyclobenzaprine 10 mg tablet 10 mg PO TID PRN muscle spasm #10 11/28/23 tabs Allergies Allergy/AdvReac Type Severity Reaction Status Date / Time No Known Drug Allergies Allergy Verified 08/31/23 10:53 General Stated Complaint: GenMedical TANYA: 3 Review of Systems All systems reviewed & are unremarkable except as noted in HPI and below ENT Ears, Nose, Mouth, and Throat: Reports neck pain Musculoskeletal Musculoskeletal: Reports as per HPI, Reports muscle weakness and Reports neck pain Exam Narrative Exam Narrative: Constitutional: Alert and oriented x3. Appears stated age. Normal body habitus. Head: Normocephalic, no trauma. Eyes: Pupils PERRL, Red reflex noted, EOM's intact. Eyelids symmetrical without lesions, discharge, or swelling. ENT: Bilateral TM's WNL, External ear normal to inspection, no mastoid TTP, swelling, or erythema, Nasal turbinates WNL, no nasal discharge. Normal dentition, Posterior pharynx WNL, no exudate. Chest: RRR, Normal S1, S2, distal pulses intact. Resp: Lungs clear to auscultation bilaterally, no wheezes, rales, or rhonchi. Abdomen: Soft, non-distended, Normoactive bowel sounds all 4 quads. Musculoskeletal: Normal gait, 5/5 strength to all four extremities. Skin: No suspicious rashes or lesions. Capillary refill less than 2 sec. Neurologic: Cranial nerves II-XII intact. Alert and oriented x 3. Motor: No deficits noted. Sensory: Intact bilaterally all 4 extremities. Reflexes: DTR's intact bilaterally.. Hematologic/Lymphatic: No ecchymosis, no lymphadenopathy. Course Vital Signs Vital signs: Vital Signs Temperature 36.6 C 11/28/23 16:20 Pulse 80 11/28/23 16:20 Respiratory Rate 14 11/28/23 16:20 Blood Pressure 162/84 H 11/28/23 16:20 Pulse Oximetry 100 11/28/23 16:20 Temperature 36.6 C 11/28/23 16:20 Temperature Source Skin 11/28/23 16:20 Pulse 80 11/28/23 16:20 Respiratory Rate 14 11/28/23 16:20 Blood Pressure 162/84 H 11/28/23 16:20 Blood Pressure Position Sitting 11/28/23 16:20 Pulse Oximetry 100 11/28/23 16:20 Oxygen Delivery Method Room Air 11/28/23 16:20 Oxygen Flow Rate 0 11/28/23 16:20 Pain Level 5 11/28/23 16:20 Comment taking ibuprofen and smoking herb 11/28/23 16:20 Medical Decision Making 28-year-old male presents to the ER chief complaint of right upper extremity tingling, 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 He reports that he does heavy lifting for his job. He states that he was holding a bong the other day and had a hard time gripping it. Distal pulses intact. He does have good flexion extension at his elbow, has good abduction and abduction of the shoulder. No midline C-spine tenderness with palpation however he does have some upper T-spine tenderness with palpation. No crepitus or step-off. 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 He denies having any surgery or any known back or spine problems. Denies any loss of bowel or bladder control or any other paresthesias or tingling to his other extremities. On exam he does have some right cervical paraspinous tenderness noted and spasm. Discussed options including CT imaging, x-ray. They deferred this at this time due to needing to sheepskin pickler her child. I did encourage them strongly to follow-up with PCP to schedule outpatient imaging. Will give Flexeril and alternate ice and heat and discussed home care. I will put patient on light duty at work. I did instruct him to return for any worsening problems with sensation or weakness. Quality:SDOH Health Related Social Needs: No Data to Display PFSH All Active Problems (Updated 11/28/23 @ 18:05 by Heather Warner NP) Radiculopathy affecting upper extremity (Acute) Acute cervical myofascial strain (Acute) Agoraphobia with panic attacks (Acute) Substance use disorder (Acute) Onychomycosis (Acute) Umbilical abnormality (Acute) Acne vulgaris (Acute) Mild persistent asthma (Acute) Tobacco use disorder (Chronic) Alcohol abuse (Chronic) Panic anxiety syndrome (Acute) Anxiety (Chronic) Medical History Abscess history of multiple Surgical History No significant past surgical history Family History Maternal Uncle Lung cancer Paternal Uncle Lung cancer Maternal Grandfather Colon cancer Maternal Aunt Breast cancer Maternal Grandmother Cancer Maternal Grandmother Diabetes Maternal Uncle Diabetes Father Lung cancer Social History Smoking/Tobacco Use Status: Current every day Tobacco Type: cigarettes Smoking packs per day: 1 Smoking cigarettes per day: 20.0 Years smoked: 12 Smoking pack- years: 12.00 Tobacco: How many years used: 12 Quit status: considering quitting Smoking risk assessment performed?: Yes Alcohol Intake: current Alcohol Intake frequency: a few times a week Drug use: Daily Substance use type: marijuana Adopted: No Caregiver/Support person: No Foster care: No Household members: significant other and children Housing: house Number of Children: 0 number of grandchildren: 0 Communication Needs: None Education Level: high school Do you need help understanding health information?: Rarely current occupation: [employer] Pets and animals: Yes (1) Pets and animals: dog(s) Sexually active: Yes Do you think of yourself as: straight/heterosexual Current gender identity: male What is your relationship status?: living with partner How often do you talk on the phone with friends or family?: three or more times per week How often do you get together with friends or relatives?: twice per week Do you belong to any clubs or organized social groups?: no Panel score (0-1 are the most socially isolated patients): 2 Seatbelt use: always 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 No Action chlorhexidine gluconate 0.12 % mouthwash 15 ml buccal BID Qty: 1500 0RF Rx Instructions: swish and spit 15ml 2x daily escitalopram oxalate 10 mg tablet 10 mg PO DAILY Qty: 90 2RF naltrexone 50 mg tablet 50 mg PO DAILY Qty: 30 8RF Advair HFA 230-21 mcg/actuation HFA aerosol inhaler 2 puff inhalation BID Qty: 12 6RF albuterol sulfate [ProAir HFA] 90 mcg/actuation HFA aerosol inhaler 2 puff inhalation Q6H PRN (Reason: shortness of breath or wheezing) Qty: 18 6RF Discharge Instructions Instructions: Cervical Strain (ED) Additional Instructions: Please take the muscle relaxers as prescribed. You may take 1 up to 3 times daily as needed. These may make you sleepy. Alternate ice and heat. Please follow-up with your primary care provider to discuss outpatient imaging. Return to the ER sooner for any worsening weakness, tingling or problems with blood flow or sensation. Follow up with primary care provider in 3-5 days. Return to ED sooner if any worsening or concerns. Increase oral fluids. Please take Tylenol or Ibuprofen with food every 4-6 hours as needed for pain and swelling. Stand Alone Forms: Work Release Referrals: Chas Lunsford DO [Primary Care Provider] - 5 days Discharge Data Discharge Date/Time-TO BE ENTERED AT DEPARTURE: 11/28/23 18:23
[2023-11-28] MEDS: Cyclobenzaprine 10 MG TAB PO (18:13)
[2023-11-28] MEDS: Cyclobenzaprine 10 MG TAB, 3 TABS/BTL PO (18:15)
== END 2023-11-28 18:23 | disposition home or self-care (01) ==
PROVIDERS: Emergency Provider Registered Nurse Emergency; PCP Family Medicine
DX: S16.1XXA Strain of muscle, fascia and tendon at neck level, initial encounter (principal); M54.10 Radiculopathy, site unspecified; X50.0XXA Overexertion from strenuous movement or load, initial encounter
CPT/HCPCS: 99283

== ENCOUNTER → 2023-12-06 02:59 | Outpatient (CLI) | payer MEDICAID, SELFPAY ==
--- NOTE | 2023-12-06 15:59 | DI.RAD_ITS ---
Exam(s) XR SHOULDER RT COMPLETE 2+V EXAM: XR SHOULDER RT COMPLETE 2+V CLINICAL HISTORY: Pain after a strain of the joint S49.91XA INJURY RT SHOULDER. TECHNIQUE: 2D digital imaging was performed of the right shoulder. Five images were obtained. AP, Grashey, Y-view and axillary views were obtained. COMPARISON: No exams were available for comparison FINDINGS: BONES: No acute fracture is present. No bony destructive lesion is seen. JOINTS: No dislocation present. The acromioclavicular and glenohumeral joints are unremarkable. SOFT TISSUE: The visualized lung clark are clear. IMPRESSION: No acute fracture or dislocation. DATA REPOSITORY: RADIATION DOSE DELIVERED:
== END ==
PROVIDERS: PCP Family Medicine; Visit Provider Family Medicine
DX: S49.91XA Unspecified injury of right shoulder and upper arm, initial encounter (principal); X58.XXXA Exposure to other specified factors, initial encounter
CPT/HCPCS: 73030

== ENCOUNTER 2024-06-25 08:08 | Emergency (ER) | payer MEDICAID, SELFPAY ==
[2024-06-25 08:23] VITALS: BP 135/90; PULSE 84; RESP 17; TEMP 36.9; O2SAT 97
[2024-06-25 08:32] VITALS: BP 135/90; PULSE 84; RESP 17; TEMP 36.9; O2SAT 97
[2024-06-25] MEDS: Benzocaine 20% Gel 30 GM JAR MM (09:31)
--- NOTE | 2024-06-25 15:28 | ED.GENADUL_ITS ---
Discharge Plan Disposition Patient Disposition: Home Condition: Stable Discharge Details Clinical Impression: Abscess, dental Primary Care Provider: Chas Lunsford ED Provider: Erma Perez Home Meds and New Rx's Prescriptions: New clindamycin HCl 150 mg capsule 450 mg PO TID Qty: 90 0RF Continued albuterol sulfate [ProAir HFA] 90 mcg/actuation HFA aerosol inhaler 2 puff inhalation Q6H PRN (Reason: shortness of breath or wheezing) Qty: 18 6RF escitalopram oxalate 10 mg tablet 10 mg PO DAILY Qty: 90 2RF Advair HFA 230-21 mcg/actuation HFA aerosol inhaler 2 puff inhalation BID Qty: 12 6RF Discharge Instructions Instructions: Dental Pain (DC) Additional Instructions: Establish care with a dentist have given you a packet of providers Ibuprofen and Tylenol as needed for pain Take the antibiotic as prescribed, yogurt daily while on antibiotic Salt water gargles with warm water as frequently as possible today You may use the HurriCaine gel as prescribed as needed for discomfort please return should you have new or worsening complaints including spreading redness, fever, worsening pain Be aware that the antibiotic will likely take 48 hours to become therapeutic Referrals: Chas Lunsford DO [Primary Care Provider] - Discharge Data Discharge Date/Time-TO BE ENTERED AT DEPARTURE: 06/25/24 09:39 HPI General Date/Time Provider Initiated Documentation: 06/25/24 08:57 . HPI Narrative: This 29-year-old male presents with report of right lower dental pain. Patient states this started several days prior to arrival but has been worsening and now has swelling to his face. Has not taken antibiotics. Does not have a dentist. Denies difficulty swallowing or fever. Related Data Home Medications ?Medication ?Instructions ?Recorded ?Confirmed albuterol sulfate 90 mcg/actuation 2 puff inhalation Q6H PRN 11/22/23 06/25/24 aerosol inhaler (ProAir HFA) shortness of breath or wheezing #18 grams escitalopram oxalate 10 mg tablet 10 mg PO DAILY #90 tabs 03/24/24 06/25/24 fluticasone propionate 230 2 puff inhalation BID #12 grams 03/24/24 06/25/24 mcg-salmeterol 21 mcg/actuation HFA inhaler (Advair HFA) clindamycin HCl 150 mg capsule 450 mg (3 x 150 mg) PO TID #90 caps 06/25/24 Previous Rx's ?Medication ?Instructions ?Recorded albuterol sulfate 90 mcg/actuation 2 puff inhalation Q6H PRN 11/22/23 aerosol inhaler (ProAir HFA) shortness of breath or wheezing #18 grams escitalopram oxalate 10 mg tablet 10 mg PO DAILY #90 tabs 03/24/24 fluticasone propionate 230 2 puff inhalation BID #12 grams 03/24/24 mcg-salmeterol 21 mcg/actuation HFA inhaler (Advair HFA) clindamycin HCl 150 mg capsule 450 mg (3 x 150 mg) PO TID #90 caps 06/25/24 Allergies Allergy/AdvReac Type Severity Reaction Status Date / Time No Known Drug Allergies Allergy Other (See Verified 06/25/24 08:26 Comment) General Stated Complaint: DentalOral TANYA: 4 Exam Narrative Exam Narrative: 29-year-old male with fluctuance lesion adjacent to right lower molar, and drainage noted, right mandibular swelling, no trismus, no evidence of Burton's angina maintaining secretions, oropharynx patent, uvula midline Course Vital Signs Vital signs: Vital Signs Temperature 36.9 C 06/25/24 08:23 Pulse 84 06/25/24 08:23 Respiratory Rate 17 06/25/24 08:23 Blood Pressure 135/90 06/25/24 08:23 Pulse Oximetry 97 06/25/24 08:23 Temperature 36.9 C 06/25/24 08:32 Temperature Source Oral 06/25/24 08:32 Pulse 84 06/25/24 08:32 Respiratory Rate 17 06/25/24 08:32 Respiratory Effort Normal 06/25/24 08:25 Blood Pressure 135/90 06/25/24 08:32 Blood Pressure Position Sitting 06/25/24 08:32 Pulse Oximetry 97 06/25/24 08:32 Oxygen Delivery Method Room Air 06/25/24 08:32 Oxygen Flow Rate 0 06/25/24 08:32 Pain Level 4 06/25/24 08:32 Procedures Abscess I/D Site: Other (Dental) Side (if applicable): Right Local Anesthetic: Lidocaine 1% Technique: Needle Aspiration Amount of fluid expressed (mL): 2 Medical Decision Making 29-year-old male presenting with dental abscess to right lower tooth. Topical anesthetic was applied and an 18-gauge was used to aspirate abscess, no evidence of Burton's angina. Placed on clindamycin and dental referral supplied Return precautions reviewed and patient expressed understanding Quality:SDOH Health Related Social Needs: No Data to Display PFSH All Active Problems (Updated 06/25/24 @ 09:19 by YOON Kauffman) Abscess, dental (Acute) Right shoulder injury (Acute) Agoraphobia with panic attacks (Acute) Substance use disorder (Acute) Onychomycosis (Acute) Umbilical abnormality (Acute) Acne vulgaris (Acute) Mild persistent asthma (Acute) Tobacco use disorder (Chronic) Alcohol abuse (Chronic) Panic anxiety syndrome (Acute) Anxiety (Chronic) Medical History Abscess history of multiple Surgical History No significant past surgical history Family History Maternal Uncle Lung cancer Paternal Uncle Lung cancer Maternal Grandfather Colon cancer Maternal Aunt Breast cancer Maternal Grandmother Cancer Maternal Grandmother Diabetes Maternal Uncle Diabetes Father Lung cancer Social History Smoking/Tobacco Use Status: Current every day Tobacco Type: cigarettes Smoking packs per day: 1 Smoking cigarettes per day: 20.0 Years smoked: 12 Smoking pack- years: 12.00 and smokeless tobacco Tobacco: How many years used: 12 Quit status: considering quitting Smoking risk assessment performed?: Yes Alcohol Intake: former Drug use: Daily Substance use type: marijuana Adopted: No Caregiver/Support person: No Foster care: No Household members: significant other and children Housing: house Number of Children: 0 number of grandchildren: 0 Communication Needs: None Education Level: high school Do you need help understanding health information?: Rarely current occupation: [employer] Pets and animals: Yes (1) Pets and animals: dog(s) Sexually active: Yes Do you think of yourself as: straight/heterosexual Current gender identity: male What is your relationship status?: living with partner How often do you talk on the phone with friends or family?: three or more times per week How often do you get together with friends or relatives?: twice per week Do you belong to any clubs or organized social groups?: no Panel score (0-1 are the most socially isolated patients): 2 Seatbelt use: always 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
--- NOTE | 2024-06-26 08:41 | W.EDPROG ---
Date of service: 06/26/24 Time of Service: 08:41 Medical Decision Making This patient was seen in the emergency department yesterday evening and prescribed clindamycin in setting with dental infection. He reportedly lost his prescription. Will call in a new prescription. Quality:SDLA Health Related Social Needs: No Data to Display Discharge Plan Disposition Patient Disposition: Home Condition: Stable Discharge Details Clinical Impression: Abscess, dental Primary Care Provider: Chas Lunsford ED Provider: Erma Perez Home Meds and New Rx's Prescriptions: New clindamycin HCl 150 mg capsule 450 mg PO TID Qty: 90 0RF clindamycin HCl 300 mg capsule 300 mg PO Q6H 7 Days Qty: 28 0RF Continued albuterol sulfate [ProAir HFA] 90 mcg/actuation HFA aerosol inhaler 2 puff inhalation Q6H PRN (Reason: shortness of breath or wheezing) Qty: 18 6RF escitalopram oxalate 10 mg tablet 10 mg PO DAILY Qty: 90 2RF Advair HFA 230-21 mcg/actuation HFA aerosol inhaler 2 puff inhalation BID Qty: 12 6RF Discharge Instructions Instructions: Dental Pain (DC) Additional Instructions: Establish care with a dentist have given you a packet of providers Ibuprofen and Tylenol as needed for pain Take the antibiotic as prescribed, yogurt daily while on antibiotic Salt water gargles with warm water as frequently as possible today You may use the HurriCaine gel as prescribed as needed for discomfort please return should you have new or worsening complaints including spreading redness, fever, worsening pain Be aware that the antibiotic will likely take 48 hours to become therapeutic Referrals: Chas Lunsford DO [Primary Care Provider] - Discharge Data Discharge Date/Time-TO BE ENTERED AT DEPARTURE: 06/25/24 09:39
== END 2024-06-25 09:39 | disposition home or self-care (01) ==
PROVIDERS: Emergency Provider Physician Assistant; PCP Family Medicine
DX: K04.7 Periapical abscess without sinus (principal)
CPT/HCPCS: 00123; 10160; 99283

== ENCOUNTER 2025-07-07 18:10 | Emergency (ER) | payer MEDICAID, SELFPAY ==
[2025-07-07 18:20] VITALS: BP 129/79; PULSE 85; RESP 20; TEMP 36.7; O2SAT 97
--- NOTE | 2025-07-07 19:15 | DI.CT_ITS ---
Exam(s) CT ABDOMEN PELVIS W EXAM: CT ABDOMEN PELVIS W CLINICAL HISTORY: umbilical cellulitis w/ firm, tender mass above. TECHNIQUE: Imaging Protocol: Axial computed tomography images with coronal and sagittal reformatted images were created and reviewed CONTRAST MATERIAL: Intravenous: Omnipaque-350 100cc Oral: None COMPARISON: CT CT ABDOMEN PELVIS W from 07/04/2020 FINDINGS: VISUALIZED LUNG BASES: No nodules nor pleural effusions evident. ABDOMEN: There is no ascites. LIVER: There are no focal hepatic lesions evident. No dilated intrahepatic ducts. GALLBLADDER/BILIARY: No obvious gallbladder pathology. CBD is not dilated. PANCREAS: No evidence of pancreatic mass nor dilatation of the pancreatic duct. SPLEEN: Spleen is not enlarged. No obvious intrasplenic lesions. Splenic and portal veins are patent. ADRENALS: There are no significant adrenal masses. KIDNEYS:No cysts evident. No solid renal masses. No calculi nor hydronephrosis.. ABDOMINAL AORTA: Abdominal aorta is not enlarged. LYMPH NODES:There is no retroperitoneal nor paraaortic adenopathy. ABDOMINAL WALL: There is a midline umbilical collection with surrounding streaking and overlying skin thickening. Suspect abscess and cellulitis. There is no gas in the soft tissues. There is no abnormal fluid collection within the actual abdominal cavity. GI: No evidence of bowel obstruction or free air. PELVIS: GI: No evidence of appendicitis.No evidence of sigmoid diverticulitis. LYMPH NODES: There is no intrapelvic nor inguinal adenopathy. REPRODUCTIVE: Prostate gland not enlarged. URINARY BLADDER: No calculi nor obvious masses evident OSSEOUS: No fractures and no significant osseous lesions. Sacroiliac joints unremarkable. IMPRESSION: 1. There is a midline umbilical abscess with overlying cellulitis. Report called by myself to ER physician 07/07/2025 at 9:14 p.m. RADIATION DOSE DELIVERED: 370.1mGy.cm Total DLP DATA REPOSITORY: All CT scans at this facility are submitted to the National Radiology Data Registry (NRDR) Dose Index Registry (DIR) with the [employer] (A[employer]). RADIATION OPTIMIZATION: All CT scans at this facility use at least one of these dose optimization techniques: automated exposure control; mA and/or kV adjustment per patient size (includes targeted exams where dose is matched to clinical indication); or iterative reconstruction.
[2025-07-07 19:49] LABS: Abs Immature Grans 0.04 10^3/uL (0.0-0.06); HCT 47.7 % (40.0-50.0); HGB 16.3 g/dL (13.5-17.5); Immature Grans % 0.3 %; MCH 30.0 pg (27.0-33.0); MCHC 34.2 % (32.0-36.0); MCV 88 fL (80-95); MPV 9.8 fL (8.0-11.0); Platelet Count 219 10^3/uL (130-400); RBC 5.43 10^6/uL (4.36-5.78); RDW 12.8 % (11.8-14.1); RDW-SD 41.5 fL; WBC 14.18 10^3/uL (4.4-10.8)
--- NOTE | 2025-07-07 20:02 | W.ED.GENAD ---
Discharge Plan Disposition Patient Disposition: Home Condition: Stable Discharge Details Clinical Impression: Abscess of umbilicus Primary Care Provider: Chas Lunsford ED Provider: Ruth Cool Home Meds and New Rx's Prescriptions: New cephalexin 500 mg capsule 500 mg PO QID 9 Days Qty: 36 0RF sulfamethoxazole-trimethoprim [Bactrim DS] 800-160 mg tablet 1 tab PO BID 9 Days Qty: 18 0RF No Action cholecalciferol (vitamin D3) 25 mcg (1,000 unit) capsule 25 mcg PO DAILY Qty: 90 1RF terbinafine HCl 1 % cream 1 applic topical BID Qty: 30 1RF ciclopirox 8 % solution 1 applic topical QHS 28 Days Qty: 6.6 8RF clindamycin phosphate 1 % gel 1 applic topical BID Qty: 30 1RF Rx Instructions: apply to rash chest/groin atomoxetine 25 mg capsule 25 mg PO QAM Qty: 30 0RF quetiapine 50 mg tablet 50 mg PO QHS Qty: 90 0RF atomoxetine 40 mg capsule 40 mg PO QAM Qty: 30 1RF Rx Instructions: * begin this dose after completing 30 days of 25 mg dosage * albuterol sulfate [ProAir HFA] 90 mcg/actuation HFA aerosol inhaler 2 puff inhalation Q6H PRN (Reason: shortness of breath or wheezing) Qty: 18 6RF Advair HFA 230-21 mcg/actuation HFA aerosol inhaler 2 puff inhalation BID Qty: 12 6RF Discharge Instructions Instructions: Skin Abscess Additional Instructions: You were seen in the emergency department today for evaluation of a swelling in your bellybutton that was found to be an abscess with surrounding cellulitis. In our department you do CT scan that did not show any other abnormalities and you will be started on antibiotics to treat this infection. Please take all of this antibiotic until it is gone, even if you start to feel better. If the abscess grows in size it may need to be drained, and you should follow-up with your primary care provider in the next few days to discuss this visit and any symptoms that change, worsen, or persist. Thank you for allowing us to be part of your care. Stand Alone Forms: Work Release Discharge Data Discharge Date/Time-TO BE ENTERED AT DEPARTURE: 07/07/25 22:28 HPI General Mode of arrival: ambulatory. Date/Time Provider Initiated Documentation: 07/07/25 18:13. Limitations to Documentation: no limitations. Information obtained by: patient and old records reviewed. HPI Narrative: This is a 30-year-old male patient presenting for evaluation of a lesion in his umbilicus. The patient reports that he has noticed this area for a few days now, has a history of abscess/cyst in that area that has spontaneously drained in the past. Has not been on antibiotics for quite some time. He is otherwise healthy person other than a history of bipolar, no personal history of intra-abdominal surgeries. He has been eating and drinking normally, no fevers or chills, no changes in bowel or bladder habits. Related Data Home Medications ?Medication ?Instructions ?Recorded ?Confirmed albuterol sulfate 90 mcg/actuation 2 puff inhalation Q6H PRN 11/22/23 04/30/25 aerosol inhaler (ProAir HFA) shortness of breath or wheezing #18 grams cholecalciferol (vitamin D3) 25 25 mcg PO DAILY #90 caps 11/04/24 07/07/25 mcg (1,000 unit) capsule ciclopirox 8 % topical solution 1 applic topical QHS 4 weeks #6.6 11/04/24 07/07/25 mL clindamycin phosphate 1 % topical 1 applic topical BID #30 grams 11/04/24 07/07/25 gel terbinafine HCl 1 % topical cream 1 applic topical BID #30 grams 11/04/24 07/07/25 atomoxetine 25 mg capsule 25 mg PO QAM #30 caps 04/30/25 07/07/25 atomoxetine 40 mg capsule 40 mg PO QAM #30 caps 04/30/25 07/07/25 quetiapine 50 mg tablet 50 mg PO QHS #90 tabs 04/30/25 07/07/25 fluticasone propionate 230 2 puff inhalation BID #12 grams 05/05/25 07/07/25 mcg-salmeterol 21 mcg/actuation HFA inhaler (Advair HFA) cephalexin 500 mg capsule 500 mg PO QID 9 days #36 caps 07/07/25 sulfamethoxazole 800 1 tab PO BID 9 days #18 tabs 07/07/25 mg-trimethoprim 160 mg tablet (Bactrim DS) Previous Rx's ?Medication ?Instructions ?Recorded albuterol sulfate 90 mcg/actuation 2 puff inhalation Q6H PRN 11/22/23 aerosol inhaler (ProAir HFA) shortness of breath or wheezing #18 grams cholecalciferol (vitamin D3) 25 25 mcg PO DAILY #90 caps 11/04/24 mcg (1,000 unit) capsule ciclopirox 8 % topical solution 1 applic topical QHS 4 weeks #6.6 11/04/24 mL clindamycin phosphate 1 % topical 1 applic topical BID #30 grams 11/04/24 gel terbinafine HCl 1 % topical cream 1 applic topical BID #30 grams 11/04/24 atomoxetine 25 mg capsule 25 mg PO QAM #30 caps 04/30/25 atomoxetine 40 mg capsule 40 mg PO QAM #30 caps 04/30/25 quetiapine 50 mg tablet 50 mg PO QHS #90 tabs 04/30/25 fluticasone propionate 230 2 puff inhalation BID #12 grams 05/05/25 mcg-salmeterol 21 mcg/actuation HFA inhaler (Advair HFA) cephalexin 500 mg capsule 500 mg PO QID 9 days #36 caps 07/07/25 sulfamethoxazole 800 1 tab PO BID 9 days #18 tabs 07/07/25 mg-trimethoprim 160 mg tablet (Bactrim DS) Allergies Allergy/AdvReac Type Severity Reaction Status Date / Time No Known Drug Allergies Allergy Other (See Verified 07/07/25 18:23 Comment) General Stated Complaint: RashLesion TANYA: 4 Exam Narrative Exam Narrative: Gen: Awake and alert, in no apparent distress HEENT: Non-icteric sclera Neck: Supple Lungs: No apparent respiratory distress, normal respiratory effort. CV: Appears well perfused Abdomen: Non-distended, soft, nontender to palpation with the exception of directly superior to the umbilicus, which has a small approximately 1 cm area of fullness and induration. He does have 8 cm in diameter [place] of redness and warmth around the umbilicus. No spontaneous drainage appreciated MSK: Moves 4 extremities without apparent limitation in ROM Skin: Visualized skin without rashes, cyanosis. Neuro: Normal Gait, no obvious focal deficits or facial asymmetry. Speaks in full, clear sentences. Psych: Appropriate for situation. Course Vital Signs Vital signs: Vital Signs Temperature 36.7 C 07/07/25 18:20 Pulse 85 07/07/25 18:20 Respiratory Rate 20 07/07/25 18:20 Blood Pressure 129/79 07/07/25 18:20 Pulse Oximetry 97 07/07/25 18:20 Temperature 36.7 C 07/07/25 18:20 Pulse 85 07/07/25 18:20 Respiratory Rate 20 07/07/25 18:20 Blood Pressure 129/79 07/07/25 18:20 Blood Pressure Position Sitting 07/07/25 18:20 Pulse Oximetry 97 07/07/25 18:20 Oxygen Delivery Method Room Air 07/07/25 18:20 Oxygen Flow Rate 0 07/07/25 18:20 Lab/Test Results Lab/Test Results: Laboratory Tests Range/Units 07/07/25 19:39 WBC (4.4-10.8) 10^3/uL 14.18 H RBC (4.36-5.78) 10^6/uL 5.43 Hgb (13.5-17.5) g/dL 16.3 Hct (40.0-50.0) % 47.7 MCV (80-95) fL 88 MCH (27.0-33.0) pg 30.0 MCHC (32.0-36.0) % 34.2 RDW (11.8-14.1) % 12.8 Plt Count (130-400) 10^3/uL 219 MPV (8.0-11.0) fL 9.8 Immature Gran % % 0.3 Neutrophils % % 70.7 Lymphocytes % % 20.8 Monocytes % % 5.8 Eosinophils % % 2.0 Basophils % % 0.4 Nucleated RBC % (0.0-0.3) % 0.0 Absolute Neutrophils (1.2-6.7) 10^3/uL 10.03 H Absolute Lymphocytes (1.2-3.4) 10^3/uL 2.95 Absolute Monocytes (0.1-0.8) 10^3/uL 0.82 H Absolute Eosinophils (0.0-0.7) 10^3/uL 0.28 Absolute Basophils (0.0-0.2) 10^3/uL 0.06 VBG Lactate (<or=2.0) mmol/L 0.8 Medical Decision Making This is a 30-year-old male patient presenting for evaluation of a lesion in his umbilicus. Differential includes but is not limited to abscess and cellulitis, certainly considered hernia including incarcerated or strangulated hernia. No obstructive symptoms to suggest bowel obstruction. No systemic symptoms to suggest sepsis or bacteremia, no trauma reported. We will obtain laboratory studies to include CBC, CMP, magnesium, and lipase. We will obtain a CT of the abdomen and pelvis to better characterize this lesion. -I reviewed the patient's laboratory studies, which shows a leukocytosis to 14 but no anemia, thrombocytopenia. Lactate is low at 0.8, chemistry panel without electrolyte derangement, evidence of kidney or liver disease, lipase is low. CT reviewed by myself and discussed with the radiologist. This shows a small abscess at the umbilicus with overlying skin thickening and some streaking concerning for abscess and cellulitis. The peritoneal cavity and intra-abdominal contents are all without acute findings. Given the small size and the sensitive location I do not feel that empiric incision and drainage is indicated, and initiated the patient on dual antibiotic coverage with Keflex and Bactrim. I counseled him extensively on return precautions should his symptoms worsen, the lesion enlarge, as he may require incision and drainage if this fails antibiotic management. At this time, the patient has had a full medical evaluation and is safe for discharge to home. They are hemodynamically stable, ambulatory, and tolerating PO. They are understanding of the follow-up plan and return precautions. They left our facility without incident. Ruth Cool MD [facility] All Active Problems (Updated 07/07/25 @ 22:13 by Ruth Cool MD) Abscess of umbilicus (Acute) Insomnia (Acute) ADHD (attention deficit hyperactivity disorder), combined type (Acute) Bipolar disorder, unspecified (Acute) History of substance use disorder (Acute) History of alcohol abuse (Acute) Depression (Chronic) Paresthesia of foot (Acute) Rash (Acute) Pes planus of both feet (Acute) Hidradenitis suppurativa (Acute) Athletes foot (Acute) Right shoulder injury (Acute) Agoraphobia with panic attacks (Acute) Onychomycosis (Acute) Umbilical abnormality (Acute) Acne vulgaris (Acute) Mild persistent asthma (Acute) Tobacco use disorder (Chronic) Panic anxiety syndrome (Acute) Anxiety (Chronic) Medical History Substance use disorder Alcohol abuse Abscess history of multiple Surgical History No significant past surgical history Family History Maternal Uncle Lung cancer Paternal Uncle Lung cancer Maternal Grandfather Colon cancer Maternal Aunt Breast cancer Maternal Grandmother Cancer Maternal Grandmother Diabetes Maternal Uncle Diabetes Father Lung cancer Social History Smoking/Tobacco Use Status: Current every day Tobacco Type: cigarettes Smoking packs per day: 1 Smoking cigarettes per day: 20.0 Years smoked: 12 Smoking pack-years: 12.00 and smokeless tobacco Tobacco: How many years used: 12 Quit status: considering quitting Smoking risk assessment performed?: Yes Alcohol Intake: former Drug use: Daily Substance use type: marijuana Adopted: No Caregiver/Support person: No Foster care: No Household members: significant other and children Housing: house Number of Children: 0 number of grandchildren: 0 Communication Needs: None Education Level: high school Do you need help understanding health information?: Rarely current occupation: [employer] Pets and animals: Yes (1) Pets and animals: dog(s) Sexually active: Yes Do you think of yourself as: straight/heterosexual Current gender identity: male What is your relationship status?: living with partner How often do you talk on the phone with friends or family?: three or more times per week How often do you get together with friends or relatives?: twice per week Do you belong to any clubs or organized social groups?: no Panel score (0-1 are the most socially isolated patients): 2 Seatbelt use: always 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
[2025-07-07 20:07] LABS: ALT 26 U/L (16-63); AST 29 U/L (15-37); Albumin 4.3 g/dL (3.4-5.0); Alkaline Phosphatase 69 U/L (46-116); Anion Gap 9.2 mmol/L (3-11); BUN 18 mg/dL (7-18); Bilirubin, Total 0.6 mg/dL (0.2-1.0); CO2 27.8 mmol/L (21.0-32.0); Calcium 9.3 mg/dL (8.5-10.1); Chloride 102 mmol/L (98-107); Estimated GFR 103.19 (mL/min/1.73m2); Glucose 89 mg/dL (74-106); Lipase 35 U/L (<78); Magnesium 2.0 mg/dL (1.8-2.4); Potassium 4.4 mmol/L (3.5-5.1); Sodium 139 mmol/L (136-145); Total Protein 7.6 g/dL (6.4-8.2)
[2025-07-07] MEDS: Normal Saline - Diluent 50 ML VIAL IJ (20:08)
[2025-07-07] MEDS: Omnipaque 350 MG/ML 100 ML BTL IJ (20:08)
[2025-07-07] MEDS: Normal Saline Flush 10 ML SYR IVP (20:09)
--- NOTE | 2025-07-07 21:10 | DI.VRAD_ITS ---
PROCEDURE INFORMATION: Exam: CT Abdomen And Pelvis With Contrast Exam date and time: 07/07/2025 8:02 PM Age: 30 years old Clinical indication: Abdominal pain; Periumbilical; Umbilical cellulitis w/ firm, tender mass above TECHNIQUE: Imaging protocol: Computed tomography of the abdomen and pelvis with contrast. Radiation optimization: All CT scans at this facility use at least one of these dose optimization techniques: automated exposure control; mA and/or kV adjustment per patient size (includes targeted exams where dose is matched to clinical indication); or iterative reconstruction. Contrast material: OMNIPAQUE 350; Contrast volume: 100 ml; Contrast route: INTRAVENOUS (IV); COMPARISON: CT ABDOMEN PELVIS W 07/04/2020 10:05 PM FINDINGS: Lungs: Lung bases are clear. Liver: The liver has a normal appearance. Gallbladder and biliary ducts: The gallbladder is unremarkable. No biliary ductal dilatation. Pancreas: The pancreas demonstrates normal size. No pancreatic ductal dilatation. Spleen: The spleen demonstrates normal size. Adrenal glands: The adrenal glands have a normal appearance. Kidneys and ureters: The kidneys are normal in size. No hydronephrosis. No hydroureter or ureterolithiasis. Stomach and bowel: The bowel demonstrates overall normal caliber and wall thickness. Appendix: The appendix is thin walled. Intraperitoneal space: Unremarkable. No free air. No significant fluid collection. Vasculature: The IVC and aorta have a normal appearance. Lymph nodes: No enlarged lymph nodes. Urinary bladder: The bladder is thin walled and fluid filled. Reproductive: Unremarkable as visualized. Bones/joints: Bones have a normal appearance. No acute fracture or suspicious bone lesion. Soft tissues: There is a centrally hypodense, peripherally enhancing subcutaneous mass within the umbilical region which measures 1.8 x 1.7 cm in the axial plane. This is new when compared with the CT dated 07/04/2020. IMPRESSION: 1. Findings suspicious for subcutaneous periumbilical abscess. 2. No other acute intra-abdominal findings. 3. Normal appendix. Dictated and Authenticated by: Marcia Hickman MD. Orderin [facility] Miranda MD
[2025-07-07] MEDS: Cephalexin 500 MG CAP, 4 CAPS/BTL PO (22:19)
[2025-07-07] MEDS: Sulfameth/Trimeth DS, 2 TABS/BTL 1 TAB PO (22:19)
[2025-07-07 22:27] VITALS: BP 136/70; PULSE 62; RESP 18; O2SAT 99
== END 2025-07-07 22:28 | disposition home or self-care (01) ==
PROVIDERS: Emergency Provider Emergency Medicine; PCP Family Medicine
DX: L02.216 Cutaneous abscess of umbilicus (principal); L03.316 Cellulitis of umbilicus; F17.210 Nicotine dependence, cigarettes, uncomplicated
CPT/HCPCS: 36415; 80053; 83690; 99285; 74177; 83605; 83735; 85025; 99284; J3490